=== PATIENT | female | born 1970 | race Caucasian/White ===

== ENCOUNTER 2019-10-02 06:58 | Day surgery (SDC) | payer OTHER ==
[~2019-10-02] VITALS: Ht 157.5 cm; Wt 127.4 kg
[~2019-10-02 06:58] MED LIST: ALBU90OI6 INH; AMLO10 PO; AZIT250 PO; BENTYL20 MG PO; CODGUAEL PO; CYCL10 PO; HYDACE5 PO; HYDR1TAB94 PO; IBUP800 PO; MECL25 PO; METF500 PO; NAPR220 PO; Norco 5-325 Ta1 EACH PO; OMEP20ER PO; PROM25 PO; Ziac 5-6.25 MG1 EACH PO
--- NOTE | 2019-10-02 07:32 | NUR ---
History, Chart, Medications and Allergies reviewed before start of procedure. Patient confirms NPO status and agrees with scheduled surgery. Reports doing bowel prep with clear results. Patient States Post-Procedure ride home has been arranged with her .
--- NOTE | 2019-10-02 08:36 | NUR ---
10/02/19 0836 Johnny Leach Bite Block PlacedO2 VIA N/C INTACT THROUGHOUT SEDATION/PROCEDURE. See Anesthesia recordMONITOR INTACT WITH CONTINUOUS PULSE OXIMETRY AND INTERMITTENT BP.History, Chart, Medications and Allergies reviewed before start of procedure.
== END 2019-10-02 09:43 | disposition home or self-care (01) ==
LOC: ORSCMMR 06:58 → ORD 08:30 → ORSCMMR 08:30
PROVIDERS: Internal Medicine Gastroenterology
PROC: 0DB68ZX Excision of Stomach, Via Natural or Artificial Opening Endoscopic, Diagnostic (ICD-10-PCS; principal; 2019-10-02 08:30)
DX: K21.0 Gastro-esophageal reflux disease with esophagitis (principal); Z01.818 Encounter for other preprocedural examination; E66.01 Morbid (severe) obesity due to excess calories; Z68.43 Body mass index [BMI] 50.0-59.9, adult; K76.0 Fatty (change of) liver, not elsewhere classified; G47.33 Obstructive sleep apnea (adult) (pediatric); I10 Essential (primary) hypertension; E11.9 Type 2 diabetes mellitus without complications; Z79.84 Long term (current) use of oral hypoglycemic drugs; Z79.899 Other long term (current) drug therapy
CPT/HCPCS: 82947; 88305; 88342; J2001; J2250; J2704; J7120

== ENCOUNTER 2019-12-09 05:43 | Day surgery (SDC) | payer OTHER ==
[~2019-12-09] VITALS: Ht 157.5 cm; Wt 127.0 kg
[2019-12-09] MEDS ORDERED: ATOR80 PO (06:53)
[2019-12-09] MEDS ORDERED: ASPI81CH PO (06:53)
--- NOTE | 2019-12-09 11:47 | NUR ---
DISCHARGE PT REMAINED I&OX3 AND DENIED ANY PAIN DURING RECOVERY. R RADIAL SITE TR BAND REMOVED REPLACED WITH CLOTH DOT BANDAGE, WHITE BOARD AND ARM NOMRY-LQL-RH HEMATOMA NOTED. PT UP TO RESTROOM AND DRESSES SELF INDEPENDATLY. IV DC'D WITH CANULA IN TACT. DISCHARGE PAPERWORK GONE OVER WITH PT. PT VERBALLY STATED THE UDNERSTANDING OF THE DISCHARGE EDUCATION AND DENIED ANY QUESTIONS AT THIS TIME. PT WHEELED OUT BY THIS NURSE.
== END 2019-12-09 11:00 | disposition home or self-care (01) ==
LOC: MHTC 05:43
DX: R07.9 Chest pain, unspecified (principal); R06.00 Dyspnea, unspecified; R53.83 Other fatigue; E55.9 Vitamin D deficiency, unspecified; I11.9 Hypertensive heart disease without heart failure; R00.2 Palpitations; G47.33 Obstructive sleep apnea (adult) (pediatric); Z99.89 Dependence on other enabling machines and devices; Z88.2 Allergy status to sulfonamides; Z79.84 Long term (current) use of oral hypoglycemic drugs; Z79.899 Other long term (current) drug therapy
CPT/HCPCS: 82947; 93005; 93010; 93458; 99152; 99153; C1769; C1894; J1644; J2250; J3010; J7030; Q9967

== ENCOUNTER → 2021-07-27 | Outpatient (CLI) | payer OTHER ==
[~2021-07-27] MED LIST changes: +ASPI81CH PO; +ATOR80 PO
== END | disposition home or self-care (01) ==
LOC: LAB 17:51 → LAB SHORT 17:51
DX: N39.0 Urinary tract infection, site not specified (principal); R30.9 Painful micturition, unspecified
CPT/HCPCS: 87086

== ENCOUNTER 2022-09-12 09:50 | Emergency (ER) | payer OTHER ==
[~2022-09-12] VITALS: Ht 154.9 cm; Wt 102.1 kg
[2022-09-12] MEDS ORDERED: Robaxin750 MG PO (12:31)
[2022-09-12] MEDS ORDERED: Voltaren100 GM TOP (12:31)
[2022-09-12] MEDS ORDERED: Neurontin 100100 MG PO ×2 (12:31→12:38)
== END 2022-09-12 12:43 | disposition home or self-care (01) ==
LOC: ER 09:50
DX: M54.12 Radiculopathy, cervical region (principal); M54.16 Radiculopathy, lumbar region; Z79.84 Long term (current) use of oral hypoglycemic drugs; Z79.899 Other long term (current) drug therapy; Z88.2 Allergy status to sulfonamides
CPT/HCPCS: 99283

== ENCOUNTER 2023-05-20 08:50 | Day surgery (SDC) | payer OTHER ==
[~2023-05-20] VITALS: Ht 154.9 cm; Wt 103.5 kg
[~2023-05-20 08:50] MED LIST changes: +IPRATROPIUM BRO30 ML; +LIDO700A20 TOP; +MORP15ER PO; +Neurontin 100100 MG PO; +Robaxin750 MG PO; +Voltaren100 GM TOP
[2023-05-20] MEDS ORDERED: Loratadine10 MG PO (09:28)
[2023-05-20] MEDS ORDERED: BUSPIRONE HCL5 M6 PO (09:28)
--- NOTE | 2023-05-20 11:08 | NUR ---
05/20/23 1108 Noemi Haskins 20ML OF ROPIVACAINE 0.5% MIXED AND VERIFIED WITH 0.1ML OF EPI (1MG/ML) TO MAKE ROPIVACAINE 0.5% WITH EPI 1:200,000 FOR INJECTION AT THE OPSITE BY DR MOON
[2023-05-20 11:44] VITALS: BP 164/91
--- NOTE | 2023-05-20 13:13 | NUR ---
05/20/23 1313 Jimi Art IV REMOVED INTACT. SITE WNL.
== END 2023-05-20 12:25 | disposition home or self-care (01) ==
LOC: ORSCSDS 08:50
PROVIDERS: Orthopaedic Surgery
PROC: 01N50ZZ Release Median Nerve, Open Approach (ICD-10-PCS; principal; 2023-05-20 10:15)
DX: G56.03 Carpal tunnel syndrome, bilateral upper limbs (principal); E78.00 Pure hypercholesterolemia, unspecified; M79.7 Fibromyalgia; M06.9 Rheumatoid arthritis, unspecified; I10 Essential (primary) hypertension; G47.33 Obstructive sleep apnea (adult) (pediatric); E11.9 Type 2 diabetes mellitus without complications; K21.9 Gastro-esophageal reflux disease without esophagitis; K76.0 Fatty (change of) liver, not elsewhere classified; E66.9 Obesity, unspecified; Z68.41 Body mass index [BMI] 40.0-44.9, adult; Z79.84 Long term (current) use of oral hypoglycemic drugs; Z79.899 Other long term (current) drug therapy
CPT/HCPCS: J0171; J0690; J1100; J2405; J2704; J2795; J3010; J7120

== ENCOUNTER 2023-07-01 11:29 | Day surgery (SDC) | payer OTHER ==
[~2023-07-01] VITALS: Ht 154.9 cm; Wt 103.4 kg
[~2023-07-01 11:29] MED LIST changes: +BUSPIRONE HCL5 M6 PO; +Loratadine10 MG PO
[2023-07-01 14:11] VITALS: BP 127/83
--- NOTE | 2023-07-01 15:09 | NUR ---
07/01/23 1509 Jimi Art PT REPORTS 7-8/10 PAIN IN LEFT WRIST. SHE REFUSES IV PAIN MEDICATION. SHE REPORTS NAUSEA AND WAS MEDICATED WITH 4MG ZOFRAN, PER DR. GUTIERREZ ORDERS.
== END 2023-07-01 15:16 | disposition home or self-care (01) ==
LOC: ORSCSDS 11:29
PROVIDERS: Orthopaedic Surgery
PROC: 01N50ZZ Release Median Nerve, Open Approach (ICD-10-PCS; principal; 2023-07-01 13:30)
DX: G56.02 Carpal tunnel syndrome, left upper limb (principal); J45.909 Unspecified asthma, uncomplicated; K21.9 Gastro-esophageal reflux disease without esophagitis; E78.5 Hyperlipidemia, unspecified; I10 Essential (primary) hypertension; M79.7 Fibromyalgia; E66.01 Morbid (severe) obesity due to excess calories; Z68.41 Body mass index [BMI] 40.0-44.9, adult; G47.33 Obstructive sleep apnea (adult) (pediatric); Z79.899 Other long term (current) drug therapy
CPT/HCPCS: A9270; J0690; J2001; J2250; J2405; J3010; J7120

== ENCOUNTER 2024-06-28 15:33 | Emergency (ER) | payer OTHER ==
[~2024-06-28] VITALS: Ht 154.9 cm; Wt 113.4 kg
[2024-06-28] MEDS ORDERED: OxyCODONE HCL 5 MG TAB PO ONE (17:50)
[2024-06-28] MEDS ORDERED: RX Prepack 6 Tabs Oxycodone 5mg UD ONE (18:30)
== END 2024-06-28 18:50 | disposition home or self-care (01) ==
LOC: ER 15:33
DX: M25.562 Pain in left knee (principal); M79.662 Pain in left lower leg; Z79.899 Other long term (current) drug therapy; Z88.2 Allergy status to sulfonamides
CPT/HCPCS: 29505; 73562-LT; 76882; 99284-25; A9270

== ENCOUNTER → 2024-07-21 | Outpatient (CLI) | payer BC | LOC: LAB 07:45 → LAB SHORT 07:45 | DX: D49.2 Neoplasm of unspecified behavior of bone, soft tissue, and skin (principal) | CPT/HCPCS: 88305 ==

== ENCOUNTER 2024-09-24 06:41 | Day surgery (SDC) | payer BC ==
[2024-09-24] VITALS (12 sets, daily range): BP systolic 130–162; BP diastolic 65–99
[~2024-09-24] VITALS: Ht 152.4 cm; Wt 108.0 kg
[~2024-09-24 06:41] MED LIST changes: +BISOPROLOL-HCT1 EACH PO; +CeFAZolin Sodium 2,000 MG in NS 100 ML IV SCH; +FAMO20 PO; +Lactated Ringer's 1,000 ML IV SCH; +Tranexamic Acid 100 ML IV ONE
[2024-09-24] MEDS ORDERED: Rocuronium Bromide 10 MG/ML 5ML Injection IV ONE ×2 (07:42→09:28)
[2024-09-24] MEDS ORDERED: Midazolam HCl 1MG / ML 2ML Vial ONE (07:42)
[2024-09-24] MEDS ORDERED: propofoL 20 ML IV ONE (07:42)
[2024-09-24] MEDS ORDERED: Bupivacaine 0.5% HCl 5 MG/ML 30MLVIAL ONE (07:43)
[2024-09-24] MEDS ORDERED: EpiNEPhrine 1 MG/1 ML 1ML Vial ONE (08:26)
[2024-09-24] MEDS ORDERED: CYMBALTA30 M2 PO (08:38)
--- NOTE | 2024-09-24 08:45 | NUR ---
History, Chart, Medications and Allergies reviewed before start of procedure. Pre-Op teaching done. Pt verbalizes understanding. Patient confirms NPO status and agrees with scheduled surgery. Patient reports completing Chlorhexadine shower X2 prior to admission to hospital. Surgical site prepped with 2% Chlorhexidine cloth wipe. Lungs clear T/O to Auscultation. Patient States Post-Procedure ride home has been arranged. Reading glasses tx to PACU, along with pt's singular crutch. Lower denture left in place with cup & cleansing tab sent back with patient to OR.
[2024-09-24] MEDS ORDERED: Dexamethasone Sod Phos 10 MG/ML 1ML VIAL ONE (08:58)
[2024-09-24] MEDS ORDERED: Ondansetron HCl 2 MG / ML 2ML Vial ONE (08:58)
[2024-09-24] MEDS ORDERED: FentaNYL Citrate 50 MCG/ML 2 ML Injection ONE (08:58)
[2024-09-24] MEDS ORDERED: Ketorolac Tromethamine 30mg Vial ONE (10:20)
[2024-09-24] MEDS ORDERED: Sugammadex Sodium 200 MG/2ML SDV (100 MG/ML) ONE (10:20)
[2024-09-24] MEDS ORDERED: Bupivacaine 0.5% W/EPI 1:200000 SDV 30 ML Vial ONE (10:24)
[2024-09-24] MEDS ORDERED: OxyCODONE HCL 5 MG TAB PO PRN (11:10)
--- NOTE | 2024-09-24 12:41 | NUR ---
Patient up to W/C, REPORTS HAVING BOTH CRUTCHES IN CAR. Discharge instructions reviewed with patient. Patient verbalizes understanding. Copy given to patient to take home, WELL FAMILY INCLUDING POLAR PAC WHICH PT AND FAMILY WERE ALSO VISUALLY SHOWED HOW TO USE THE POLAR PAC. Patient States Post-Procedure ride home has been arranged. Discharged via wheelchair to private car for ride home. PT TOLERATING PO, REPORTS PAIN TOLERABLE. REPORTS READY TO GO HOME. CIRC CHECK AND DRESSING WNL. PT HAS IMMOBILIZER IN PLACE.
== END 2024-09-24 12:41 | disposition home or self-care (01) ==
LOC: ORSCMMR 06:41 → ORD 07:30 → ORSCMMR 07:30
PROVIDERS: Orthopaedic Surgery Sports Medicine
PROC: 0SQD4ZZ Repair Left Knee Joint, Percutaneous Endoscopic Approach (ICD-10-PCS; principal; 2024-09-24 08:30)
DX: S83.242A Other tear of medial meniscus, current injury, left knee, initial encounter (principal); W18.30XA Fall on same level, unspecified, initial encounter; I10 Essential (primary) hypertension; K21.9 Gastro-esophageal reflux disease without esophagitis; Z79.899 Other long term (current) drug therapy; E66.01 Morbid (severe) obesity due to excess calories; Z68.42 Body mass index [BMI] 45.0-49.9, adult
CPT/HCPCS: 82947; A9270; C1713; J0171; J0690; J1100; J1885; J2250; J2405; J2704; J3010; J7120

== ENCOUNTER → 2025-07-28 | Outpatient (CLI) | payer BC ==
[~2025-07-28] MED LIST changes: +CYMBALTA30 M2 PO; -CeFAZolin Sodium 2,000 MG in NS 100 ML IV SCH; -Lactated Ringer's 1,000 ML IV SCH; -Tranexamic Acid 100 ML IV ONE
== END ==
LOC: LAB 12:35 → LAB SHORT 12:35
DX: R35.0 Frequency of micturition (principal)
CPT/HCPCS: 87086